=== PATIENT | female | born 1935 | race Caucasian/White ===

== ENCOUNTER 2019-02-04 13:38 | Inpatient (IN) | payer MEDICARE ==
[~2019-02-04] VITALS: Ht 162.6 cm; Wt 68.0 kg
[2019-02-15 12:35] VITALS: BP 127/81
== END 2019-02-15 16:44 | DRG 552 ==
LOC: ED 16:02 → EDIP 16:03 → ED 16:13 → CCU 17:32 → 4WST 02-05 15:49
PROVIDERS: ADMIT Internal Medicine; ATTEND Internal Medicine
DX: S12.110A Anterior displaced Type II dens fracture, initial encounter for closed fracture (principal); G93.40 Encephalopathy, unspecified; S12.111A Posterior displaced Type II dens fracture, initial encounter for closed fracture; E11.42 Type 2 diabetes mellitus with diabetic polyneuropathy; E03.9 Hypothyroidism, unspecified; E78.5 Hyperlipidemia, unspecified; E87.6 Hypokalemia; F32.9 Major depressive disorder, single episode, unspecified; I10 Essential (primary) hypertension; S00.81XA Abrasion of other part of head, initial encounter; W18.39XA Other fall on same level, initial encounter; Y93.89 Activity, other specified; Y92.89 Other specified places as the place of occurrence of the external cause; Y99.8 Other external cause status; Z82.49 Family history of ischemic heart disease and other diseases of the circulatory system; Z90.710 Acquired absence of both cervix and uterus
CPT/HCPCS: 36415; 70450; 72040; 72125; 72141; 80048; 80053; 82040; 83735; 84436; 84443; 84481; 85025; 85610; 87081; 93005; 99291; G0378; J2405; J2270; J7030

== ENCOUNTER 2019-02-16 16:40 | Inpatient (IN) | payer MEDICARE ==
[~2019-02-16] VITALS: Ht 162.6 cm; Wt 67.5 kg
[~2019-02-16 16:40] MED LIST: ACET325T26 PO; BUSP15TA PO; ENOX40SY4 SQ; ESCI20TA PO; FAMO20TA7 PO; GABA-827 PO; HYDR12.517 PO; HYDR25TA6 PO; LEVO112T4 PO; LISI-167 PO; ONDA4TAB13 PO; POLY17PO5 PO; SENN-193 PO; TRAM50TA2 PO
--- NOTE | 2019-02-16 16:48 | NUR ---
BIB EMS FOR SYNCOPE AND UNRESPONSIVE FOR 5 MIN. NO FALL, ON COMMODE. PT WAS RECENTLY DC FOR C1C2 FRACTURE 02/14. PT HAS C-COLLAR APPLIED. PY WAS GIVEN 1.5 L IN ROUTE. BP 82/30 PER EMS. NOW 92/34. WAITIING FOR MD ORDERS. HARVESTER OPERATOR APPLIED
--- NOTE | 2019-02-16 17:46 | NUR ---
PT HAS CO OF PAIN. WAITING FOR
[2019-02-16 18:55] LABS: BASOPHILS # (AUTO) 0.07 x10^3/uL (0-0.1); BASOPHILS % (AUTO) 1 % (0-1); EOSINOPHILS # (AUTO) 0.08 x10^3/uL (0-0.4); EOSINOPHILS % (AUTO) 1 % (1-7); LYMPHOCYTES # (AUTO) 0.94 x10^3/uL (1-3.4); LYMPHOCYTES % (AUTO) 8 % (22-44); MD NO; MEAN CORPUSCULAR HEMOGLOBIN 29.9 pg (27.0-34.8); MEAN CORPUSCULAR HGB CONC 32.2 g/dL (32.4-35.8); MEAN CORPUSCULAR VOLUME 92.8 fL (80-100); MEAN PLATELET VOLUME 6.4 fL (7.4-10.4); MONOCYTES # (AUTO) 1.14 x10^3/uL (0.2-0.8); MONOCYTES % (AUTO) 9 % (2-9); NEUTROPHILS % (AUTO) 82 % (42-75); PLATELET COUNT 419 x10^3/uL (130-400); RED BLOOD COUNT 4.52 x10^6/uL (3.82-5.3); RED CELL DISTRIBUTION WIDTH 14.3 % (9.6-15.2)
[2019-02-16 19:06] LABS: ANION GAP 6 mmol/L (5-15); CALCIUM 8.7 mg/dL (8.5-10.1); CHLORIDE 105 mmol/L (98-107)
--- NOTE | 2019-02-16 19:06 | NUR ---
REPORT GIVEN TO KENNETH PATTERSON
--- NOTE | 2019-02-16 19:08 | NUR ---
PT RESRTING ON YAHIR STEVENS, MONITORS IN PLACE, SIDERAILS UP X2, CALL LIGHT WITHIN REACH. AWAITING LAB AND XRAY RESULTS
[2019-02-16 19:12] LABS: ALANINE AMINOTRANSFERASE 16 U/L (12-78); ALKALINE PHOSPHATASE 100 U/L (45-117); BILIRUBIN,TOTAL 0.4 mg/dL (0.2-1.0); CREATININE 1.15 mg/dL (0.55-1.02); TOTAL PROTEIN 7.3 g/dL (6.4-8.2); TROPONIN I < 0.015 ng/mL (0.000-0.045)
--- NOTE | 2019-02-16 20:04 | NUR ---
PT STRAINGHT CAT FOR URINE SAMPLE, STERILE PRECAUTUIN MAINTAINED, NOTED PT INCONTINENT OF BOWEL, PT CLEANED. MONITORS IN PLACE, CALL LIGHT WITHIN REACH
[2019-02-16 20:42] LABS: MICROSCOPIC AUTO
[2019-02-16 20:45] LABS: CULTURE INDICATED? YES
--- NOTE | 2019-02-16 21:18 | NUR ---
PT RESTING ON GURNEY, STATED " I NEED SOMETHING FOR NECK PAIN", WILL UPDATED ERP. MONITORS IN PLACE, CCALL LIGHT WITHIN REACH
--- NOTE | 2019-02-16 21:31 | NUR ---
assisted pt onto bedpan
[2019-02-16] MEDS ORDERED: CEFTRIAXONE PMX 1GM/50ML 50 ML ONE (21:40)
[2019-02-16] MEDS ORDERED: MORPHINE SULFATE 4 MG/ML, 1ML ONE (22:00)
[2019-02-16] MEDS ORDERED: MORPHINE SULFATE 4 MG/ML, 1ML IVPush PRN (22:00)
[2019-02-16] MEDS ORDERED: CEFTRIAXONE PMX 1GM/50ML 50 ML IV ONE (22:00)
[2019-02-16] MEDS ORDERED: ONDANSETRON 2MG/ML, 2ML IVPush PRN (22:00)
[2019-02-16] MEDS ORDERED: ONDANSETRON 2MG/ML, 2ML ONE (22:01)
--- NOTE | 2019-02-16 22:04 | NUR ---
PT MEDICATED PER MAR
[2019-02-16 22:37] VITALS: BP 129/80
[2019-02-17] VITALS (7 sets, daily range): BP systolic 66–127; BP diastolic 47–75
[2019-02-17] MEDS ORDERED: CEFTRIAXONE PMX 1GM/50ML 50 ML IV ONE
[2019-02-17] MEDS ORDERED: POTASSIUM CHLORIDE 40 MEQ in SODIUM CHLORIDE 0.9% 500 ML IV ONE
[2019-02-17] MEDS ORDERED: BISACODYL 10 MG SUPP PR PRN
[2019-02-17] MEDS ORDERED: ONDANSETRON 2MG/ML, 2ML IVPush PRN
[2019-02-17] MEDS ORDERED: ACETAMINOPHEN 325 MG TABLET PO PRN
[2019-02-17] MEDS ORDERED: ONDANSETRON ODT 4 MG PO PRN
[2019-02-17] MEDS ORDERED: HEPARIN 5,000 UNITS/ML, 1ML SQ SCH
[2019-02-17] MEDS ORDERED: morphine SULFATE 10 MG/ML, 1ML IVPush PRN
[2019-02-17] MEDS ORDERED: hydrALAzine 20 MG/ML, 1ML IVPush PRN
[2019-02-17] MEDS ORDERED: PROMETHAZINE 25 MG/ML, 1ML IM PRN
[2019-02-17] MEDS ORDERED: POLYETHYLENE GLYCOL 17 GM PACKET PO PRN
[2019-02-17 00:16] LABS: HEMOGLOBIN A1C 6.3 % (4.2-6.3)
[2019-02-17 00:18] LABS: FREE T4 (FREE THYROXINE) 1.43 ng/dL (0.76-1.46)
[2019-02-17] MEDS: FAMOTIDINE 20 MG TABLET PO SCH (00:24)
[2019-02-17] MEDS: GABAPENTIN 400 MG CAPSULE PO SCH ×5 (00:24→20:40)
[2019-02-17] MEDS: HYDROcodone/APAP 5/325 TABLET PO PRN ×3 (00:24→22:13)
[2019-02-17] MEDS: ENOXAPARIN 40 MG/0.4 ML SQ SCH (00:25)
[2019-02-17] MEDS: SODIUM CHLORIDE 0.9% 1,000 ML IV SCH ×2 (00:36→14:53)
[2019-02-17 04:53] LABS: BASOPHILS % (AUTO) 1 % (0-1); EOSINOPHILS # (AUTO) 0.17 x10^3/uL (0-0.4); EOSINOPHILS % (AUTO) 2 % (1-7); LYMPHOCYTES # (AUTO) 1.62 x10^3/uL (1-3.4); LYMPHOCYTES % (AUTO) 19 % (22-44); MD NO; MEAN CORPUSCULAR VOLUME 93.6 fL (80-100); MEAN PLATELET VOLUME 6.9 fL (7.4-10.4); MONOCYTES # (AUTO) 1.11 x10^3/uL (0.2-0.8); MONOCYTES % (AUTO) 13 % (2-9); NEUTROPHILS % (AUTO) 66 % (42-75); PLATELET COUNT 405 x10^3/uL (130-400); RED BLOOD COUNT 4.52 x10^6/uL (3.82-5.3); RED CELL DISTRIBUTION WIDTH 14.7 % (9.6-15.2)
[2019-02-17 05:09] LABS: CHLORIDE 109 mmol/L (98-107)
[2019-02-17 05:16] LABS: ALANINE AMINOTRANSFERASE 15 U/L (12-78); ALBUMIN 2.8 g/dL (3.4-5.0); ALKALINE PHOSPHATASE 93 U/L (45-117); ANION GAP 7 mmol/L (5-15); BILIRUBIN,TOTAL 0.2 mg/dL (0.2-1.0); CALCIUM 8.5 mg/dL (8.5-10.1); CHOL/HDL RATIO 3.7; CHOLESTEROL, TOTAL 139 mg/dL (140-239); HDL CHOL % 27 % (28-40); HDL CHOLESTEROL (DIRECT) 38 mg/dL (40-60); LDL CHOLESTEROL,CALCULATED 77 mg/dL (54-169); TOTAL PROTEIN 7.1 g/dL (6.4-8.2); TRIGLYCERIDES 121 mg/dL (50-200); VLDL CHOLESTEROL 24 mg/dL (0-25)
[2019-02-17] MEDS: LEVOTHYROXINE 112 MCG TABLET PO SCH (06:20)
[2019-02-17] MEDS: BUSPIRONE 10 MG TABLET PO SCH (08:52)
[2019-02-17] MEDS: SENNA/DOCUSATE TABLET PO SCH (08:52)
[2019-02-17] MEDS: ESCITALOPRAM 10MG TABLET PO SCH (08:52)
[2019-02-17] MEDS: LISINOPRIL 10 MG TABLET PO SCH (08:52)
[2019-02-17] MEDS ORDERED: SODIUM CHLORIDE 0.9%, 500ML IVBOLUS ONE (14:30)
[2019-02-17] MEDS: METHOCARBAMOL 500 MG TABLET PO PRN (16:23)
[2019-02-17 17:53] LABS: ANION GAP 5 mmol/L (5-15); CALCIUM 8.4 mg/dL (8.5-10.1); CHLORIDE 111 mmol/L (98-107); CREATININE 1.03 mg/dL (0.55-1.02)
[2019-02-17] MEDS: CEFTRIAXONE PMX 2GM/50ML 50 ML IV SCH (20:40)
[2019-02-18 00:30] VITALS: BP 119/66
[2019-02-18] MEDS: METHOCARBAMOL 500 MG TABLET PO PRN (00:36)
[2019-02-18] MEDS: ENOXAPARIN 40 MG/0.4 ML SQ SCH (00:36)
[2019-02-18] MEDS: FAMOTIDINE 20 MG TABLET PO SCH (00:36)
[2019-02-18] MEDS: HYDROcodone/APAP 5/325 TABLET PO PRN ×3 (02:25→20:05)
[2019-02-18] MEDS: GABAPENTIN 400 MG CAPSULE PO SCH ×4 (05:14→20:05)
[2019-02-18] MEDS: LEVOTHYROXINE 112 MCG TABLET PO SCH (05:14)
[2019-02-18 06:53] VITALS: BP 131/77
[2019-02-18] MEDS: BUSPIRONE 10 MG TABLET PO SCH (09:18)
[2019-02-18] MEDS: LISINOPRIL 10 MG TABLET PO SCH (09:18)
[2019-02-18] MEDS: SENNA/DOCUSATE TABLET PO SCH (09:18)
[2019-02-18] MEDS: ESCITALOPRAM 10MG TABLET PO SCH (09:18)
[2019-02-18 11:57] LABS: ANION GAP 4 mmol/L (5-15); CALCIUM 9.1 mg/dL (8.5-10.1); CHLORIDE 110 mmol/L (98-107); CREATININE 0.83 mg/dL (0.55-1.02)
[2019-02-18 12:49] VITALS: BP 92/56
[2019-02-18 19:10] VITALS: BP 117/74
[2019-02-18] MEDS: CEFTRIAXONE PMX 2GM/50ML 50 ML IV SCH (20:51)
[2019-02-19] MEDS: FAMOTIDINE 20 MG TABLET PO SCH ×2 (00:09→23:04)
[2019-02-19] MEDS: ENOXAPARIN 40 MG/0.4 ML SQ SCH ×2 (00:09→23:04)
[2019-02-19] MEDS: HYDROcodone/APAP 5/325 TABLET PO PRN ×4 (00:09→20:54)
[2019-02-19 00:54] VITALS: BP 142/73
[2019-02-19] MEDS: METHOCARBAMOL 500 MG TABLET PO PRN ×3 (02:36→23:04)
[2019-02-19] MEDS: GABAPENTIN 400 MG CAPSULE PO SCH ×4 (06:13→20:54)
[2019-02-19] MEDS: LEVOTHYROXINE 112 MCG TABLET PO SCH (06:13)
[2019-02-19 08:00] VITALS: BP 168/83
[2019-02-19] MEDS: BUSPIRONE 10 MG TABLET PO SCH (08:48)
[2019-02-19] MEDS: SENNA/DOCUSATE TABLET PO SCH (08:48)
[2019-02-19] MEDS: LISINOPRIL 10 MG TABLET PO SCH (08:49)
[2019-02-19] MEDS: ESCITALOPRAM 10MG TABLET PO SCH (08:49)
[2019-02-19] MEDS: SULFAMETH./TRIMETHOPRIM DS 800MG/160MG TABLET PO SCH ×2 (08:49→20:54)
[2019-02-19] MEDS ORDERED: OMNIPAQUE 350 MG/ML, 100ML BOTTLE ONE (11:59)
[2019-02-19 12:14] VITALS: BP 128/63
[2019-02-19 18:31] VITALS: BP 143/87
[2019-02-20 01:10] VITALS: BP 131/75
[2019-02-20] MEDS: HYDROcodone/APAP 5/325 TABLET PO PRN ×3 (03:02→12:27)
[2019-02-20] MEDS: LEVOTHYROXINE 112 MCG TABLET PO SCH (05:57)
[2019-02-20] MEDS: GABAPENTIN 400 MG CAPSULE PO SCH ×2 (05:57→12:27)
[2019-02-20 07:35] VITALS: BP 132/82
[2019-02-20] MEDS: BUSPIRONE 10 MG TABLET PO SCH (08:59)
[2019-02-20] MEDS: ESCITALOPRAM 10MG TABLET PO SCH (09:00)
[2019-02-20] MEDS: SENNA/DOCUSATE TABLET PO SCH (09:00)
[2019-02-20] MEDS: LISINOPRIL 10 MG TABLET PO SCH (09:00)
[2019-02-20] MEDS: SULFAMETH./TRIMETHOPRIM DS 800MG/160MG TABLET PO SCH (09:00)
[2019-02-20] MEDS ORDERED: METH500T7 PO (11:00)
[2019-02-20] MEDS ORDERED: SULF-169 PO (11:00)
[2019-02-20 13:20] VITALS: BP 114/71
== END 2019-02-20 16:12 | DRG 682 ==
LOC: ED 20:21 → EDIP 21:41 → 4WST 22:22
PROVIDERS: ADMIT Internal Medicine; ATTEND Internal Medicine
DX: N17.0 Acute kidney failure with tubular necrosis (principal); J15.9 Unspecified bacterial pneumonia; Q21.1 Atrial septal defect; J98.11 Atelectasis; E87.6 Hypokalemia; B96.1 Klebsiella pneumoniae [K. pneumoniae] as the cause of diseases classified elsewhere; F32.9 Major depressive disorder, single episode, unspecified; I95.9 Hypotension, unspecified; E11.40 Type 2 diabetes mellitus with diabetic neuropathy, unspecified; I35.8 Other nonrheumatic aortic valve disorders; N30.90 Cystitis, unspecified without hematuria; E03.9 Hypothyroidism, unspecified; E78.5 Hyperlipidemia, unspecified; I10 Essential (primary) hypertension; Z98.1 Arthrodesis status; Z82.49 Family history of ischemic heart disease and other diseases of the circulatory system; Z90.710 Acquired absence of both cervix and uterus; Z90.49 Acquired absence of other specified parts of digestive tract
CPT/HCPCS: 36415; 70498; 71045; 80048; 80053; 80061; 81001; 82040; 83036; 83605; 83735; 84145; 84439; 84443; 84484; 85025; 87077; 87086; 87186; 93005; 93306; 93880; G0378; J0696; J1650; J2405; J3480; Q9967; J2270; J7030; J7040

== ENCOUNTER 2019-06-18 14:01 | Emergency (ER) | payer MEDICARE ==
[~2019-06-18] VITALS: Ht 162.6 cm; Wt 68.5 kg
[~2019-06-18 14:01] MED LIST changes: +METH500T7 PO; +SULF-169 PO
[2019-06-18] MEDS ORDERED: HYDROcodone/APAP 5/325 TABLET PO ONE (14:30)
--- NOTE | 2019-06-18 14:31 | NUR ---
THIS IS AN 84 YO WOMAN BIB [facility] FROM HOME WHERE SHE LIVES WITH DISABLED SON. PT APPEARS TO BE POOR HISTORIAN. PER EMS PT C/O EXACERBATION OF CHRONIC BACK PAIN X "YEARS" AND EXACERATION OF NECK PAIN S/P FRX SUSTAINED SOMETIME BETWEEN NOVEMBER AND JANUARY. PT ABLE TO ANSWER ALL ORIENTATION QUESTIONS APPROPRIATELY BUT IS FORGETFU, ASKING REPETITIVE QUESTIONS AND POOR HISTORIAN. PT ALSO C/O DIARRHEA X A FEW DAYS, DENIES ANY LOOSE STOOL TODAY. PT CAME IN WITH A C-COLLAR IN PLACE BUT TOOK IT OFF AND REFUSED TO PUT IT BACK ON UPON ARRIVAL. PT EDUCATED ON RISKS OF NOT WEARING C-COLLAR UP TO AND INCLUDING PARALYZATION. PT CONT TO REFUSE TO PUT IT BACK ON STATING "I WEAR IT ALL THE TIME. I'M SICK OF IT". PT STEADY UPON AMBUALTION TO RESTROOM AND BACK TO [facility]. PT NONTENDER UPON PALP OF BACK/SPINE AND ABD. PT ON CONT BP AND O2 MONITORS. CALL LIGHT WITHIN REACH. WILL CONT TO MONITOR PT.
[2019-06-18] MEDS ORDERED: HYDROcodone/APAP 5/325 TABLET ONE (14:45)
[2019-06-18 14:56] LABS: ALANINE AMINOTRANSFERASE 19 U/L (12-78); ALBUMIN 3.2 g/dL (3.4-5.0); ANION GAP 4 mmol/L (5-15); CALCIUM 8.5 mg/dL (8.5-10.1); CHLORIDE 108 mmol/L (98-107); CREATININE 0.91 mg/dL (0.55-1.02)
[2019-06-18 14:58] LABS: ALKALINE PHOSPHATASE 78 U/L (45-117); BILIRUBIN,TOTAL 0.2 mg/dL (0.2-1.0); MEAN CORPUSCULAR HEMOGLOBIN 29.2 pg (27.0-34.8); MEAN CORPUSCULAR HGB CONC 32.5 g/dL (32.4-35.8); MEAN CORPUSCULAR VOLUME 89.8 fL (80-100); MEAN PLATELET VOLUME 6.7 fL (7.4-10.4); PLATELET COUNT 225 x10^3/uL (130-400); RED BLOOD COUNT 4.27 x10^6/uL (3.82-5.3); RED CELL DISTRIBUTION WIDTH 14.9 % (9.6-15.2)
[2019-06-18 15:11] LABS: MD YES
[2019-06-18 15:26] LABS: MICROSCOPIC AUTO
[2019-06-18 15:29] LABS: CULTURE INDICATED? YES
--- NOTE | 2019-06-18 15:30 | NUR ---
LEXY HERNANDEZ AT BEDSIDE FOR EVAL. PT AO X 4. SKIN PWD. RESP EVEN AND UNLABORED. PT WAS MEDICATED ORDERED FOR PAIN. PT RATED CHRONIC BACK PAIN AT 9/10. NAD NOTED. PT AWARE WE ARE WAITING FOR LAB/IMAGING RESULTS. PT ON CONT BP, CARDIAC AND O2 MONITORS. CALL LIGHT WITHIN REACH. WILL CONT TO MONITOR PT.
[2019-06-18 15:49] LABS: <RBC MORPHOLOGY> NORMAL; BAND#(MANUAL) 0.08 x10^3/uL; BANDS%(MANUAL) 3 % (0-7); LYMPH#(MANUAL) 0.41 x10^3/uL (1-3.4); LYMPHS% (MANUAL) 15 % (22-44); MONOS#(MANUAL) 0.62 x10^3/uL (0.3-2.7); MONOS% (MANUAL) 23 % (2-9); SEG#(MANUAL) 1.59 x10^3/uL (1.8-6.8); SEGS% (MANUAL) 59 % (42-75)
[2019-06-18 15:50] LABS: <PLATELET ESTIMATE> ADEQUATE; <PLT MORPHOLOGY> NORMAL PLT MORPH
[2019-06-18 16:49] VITALS: BP 129/65
== END 2019-06-18 16:51 | disposition home or self-care (01) ==
LOC: ED 14:04
DX: R42 Dizziness and giddiness (principal); M54.2 Cervicalgia; R19.7 Diarrhea, unspecified; E11.9 Type 2 diabetes mellitus without complications; E78.5 Hyperlipidemia, unspecified; Z86.39 Personal history of other endocrine, nutritional and metabolic disease
CPT/HCPCS: 36415; 80053; 81001; 85025; 87086; 93005; 99284

== ENCOUNTER → 2019-07-08 | Outpatient (CLI) | payer MEDICARE | END | disposition home or self-care (01) | LOC: CFH 13:53 | PROVIDERS: ATTEND Neurological Surgery | DX: S12.100D Unspecified displaced fracture of second cervical vertebra, subsequent encounter for fracture with routine healing (principal); X58.XXXD Exposure to other specified factors, subsequent encounter | CPT/HCPCS: 72040 ==

== ENCOUNTER 2019-08-06 11:00 | Outpatient (CLI) | payer MEDICARE | END 2019-08-06 23:59 | disposition home or self-care (01) | LOC: CFH 11:00 | PROVIDERS: ATTEND Nurse Practitioner Family | DX: S12.120D Other displaced dens fracture, subsequent encounter for fracture with routine healing (principal); M47.812 Spondylosis without myelopathy or radiculopathy, cervical region; M53.82 Other specified dorsopathies, cervical region; X58.XXXD Exposure to other specified factors, subsequent encounter | CPT/HCPCS: 72040 ==

== ENCOUNTER 2019-09-30 15:23 | Emergency (ER) | payer MEDICARE ==
[~2019-09-30] VITALS: Ht 162.6 cm; Wt 62.0 kg
--- NOTE | 2019-09-30 15:57 | NUR ---
BREAK RN: PT REPORTS PAINFUL URINATION. UA SENT. VS STABLE. CALL ILGHT IN PLACE. WILL CONTINUE TO MONITOR WHILE PRIMARY RN IS ON BREAK.
--- NOTE | 2019-09-30 15:59 | NUR ---
REPORT GIVEN TO SAMANTA MUNROE
--- NOTE | 2019-09-30 16:20 | NUR ---
ERP AT NOW.
[2019-09-30 16:32] LABS: MICROSCOPIC AUTO
[2019-09-30 16:52] LABS: CULTURE INDICATED? YES
[2019-09-30] MEDS ORDERED: LIDOCAINE-MPF 1%, 5ML ONE (16:59)
[2019-09-30] MEDS ORDERED: PHENAZOPYRIDINE 200 MG TABLET ONE ×2 (16:59→17:39)
[2019-09-30] MEDS ORDERED: CEFTRIAXONE 1,000 MG ONE (16:59)
[2019-09-30] MEDS ORDERED: PHENAZOPYRIDINE 200 MG TABLET PO ONE (17:00)
[2019-09-30] MEDS ORDERED: CEFTRIAXONE 1,000 MG IM ONE (17:00)
--- NOTE | 2019-09-30 17:43 | NUR ---
PT MEDICATED PER ORDERS. ERP AT BS FOR RECHECK. FAMILY AT BS.
--- NOTE | 2019-09-30 18:15 | NUR ---
D/C INSTRUCTIONS, MEDS & F/U APPT RV'WD WITH PT AND DAUGHTER IN-LAW, THEY VERBALIZE UNDERSTANDING. RX GIVEN X3. PT AMBULATED OUT OF ED WITHOUT DIFFICULTY.
[2019-09-30 18:16] VITALS: BP 107/80
== END 2019-09-30 18:16 | disposition home or self-care (01) ==
LOC: ED 18:10
DX: N30.00 Acute cystitis without hematuria (principal); E11.9 Type 2 diabetes mellitus without complications; E78.5 Hyperlipidemia, unspecified
CPT/HCPCS: 81001; 87077; 87086; 87147; 87186; 96372; 99283; J0696